=== PATIENT | female | born 1980 | race Caucasian/White ===

== ENCOUNTER 2018-11-13 17:39 | Emergency (ER) | payer MEDICAID ==
[~2018-11-13] VITALS: Ht 137.2 cm; Wt 59.4 kg
[2018-11-13 18:22] VITALS: Ht 137.2 cm; Wt 59.4 kg
[2018-11-13] MEDS ORDERED: KLONOPIN1 MG PO (18:23)
[2018-11-13] MEDS ORDERED: AMITRIPTYLINE H50 MG PO (18:24)
[2018-11-13] MEDS ORDERED: CELEXA20 MG PO (18:24)
[2018-11-13] MEDS ORDERED: TORADOL10 MG PO (22:22)
[2018-11-13] MEDS ORDERED: AUGMENTIN 875-11 TAB PO (22:30)
[2018-11-13 22:51] VITALS: BP 117/51
== END 2018-11-13 22:51 | disposition home or self-care (01) ==
LOC: D.ER 17:39
DX: R22.9 Localized swelling, mass and lump, unspecified (principal); K11.5 Sialolithiasis